=== PATIENT | male | born 1955 | race Caucasian/White ===

== ENCOUNTER → 2018-08-16 | Outpatient (REF) | payer MEDICARE ==
[~2018-08-16] MED LIST: ALBUTEROL S2.5 MG/.5 IN; ALLOPURINOL300 MG PO; AMLODIPINE BESY10 MG PO; AMLODIPINE5 MG PO; BACTRIM DS1 TAB PO; COUMADIN3 MG OR; COUMADIN7.5 MG OR; COUMADIN7.5 MG PO; DOXYCYCL HYC100 MG PO; DOXYCYCLINE100 MG PO; ELIQUIS5 MG PO; FIORICET PO; FLUTICASONE50 MCG; FOLIC ACID1 MG PO; GLIPIZIDE5 MG PO; HYDRALAZINE25 MG PO; LORTAB 10-325 M1 TAB PO; LORTAB5 PO; PENICILLIN VK250 MG PO; WARFARIN7.5 MG PO; [UNRECOGNIZED DRUG - REMARK]
== END | disposition home or self-care (01) ==
LOC: DI 12:59
PROVIDERS: ATTEND Internal Medicine Cardiovascular Disease
DX: J44.9 Chronic obstructive pulmonary disease, unspecified (principal)

== ENCOUNTER 2019-06-27 | Emergency (ER) | payer OTHER, MEDICARE ==
[2019-06-27 15:20] LABS: GFR > 60 ML/MIN (>=60 (CALC)); GFR FOR AFR.AMER. > 60 ML/MIN (>=60 (CALC))
[2019-06-27 15:27] LABS: HEMATOCRIT 46.6 % (39.0-50.0); HEMOGLOBIN 15.1 g/dl (14.0-18.0); IMMATURE GRANULOCYTES 0.4 % (0.0-5.0); MEAN CELL VOLUME 87.6 fL CALC (80.0-100.0); MEAN CORPUSCULAR HGB 28.4 pG CALC (26.0-32.0); MEAN CORPUSCULAR HGB CONC 32.4 g/L CALC (32.0-36.0); NEUT# 5.12 thou/uL (1.82-7.42); RED BLOOD COUNT 5.32 mill/uL (4.70-6.10); RED CELL DISTRI WIDTH 14.1 % (11.5-15.5)
[2019-06-27 15:46] LABS: ALKALINE PHOSPHATASE 50 u/l (38-126); ANION GAP 11 (6-22 (CALC)); BILIRUBIN, TOTAL 0.6 mg/dL (0.0-1.4); BUN 12 mg/dL (8-23); BUN/CREATININE RATIO 16 (12-20 (CALC)); CARBON DIOXIDE 26 mmol/l (22-30); CHLORIDE 105 mmol/l (95-108); CREATININE 0.8 mg/dL (0.7-1.3); GFR > 60 ML/MIN (>=60 (CALC)); GFR FOR AFR.AMER. > 60 ML/MIN (>=60 (CALC)); POTASSIUM 4.2 mmol/l (3.5-5.1); SGOT/AST 26 u/l (19-48); SODIUM 137 mmol/l (137-146); TOTAL PROTEIN 7.3 g/dL (6.3-8.2)
[2019-06-27 15:52] LABS: INTERNATIONAL NORMALIZED RATIO 3.2 RATIO (0.7-1.3); PROTHROMBIN TIME 31.7 SECONDS (9.0-12.5)
[2019-06-27 16:09] LABS: URINE BILIRUBIN - DIPSTICK NEGATIVE (NEGATIVE); URINE BLOOD DIPSTICK NEGATIVE (NEGATIVE); URINE COLOR YELLOW; URINE GLUCOSE - DIPSTICK NEGATIVE (NEGATIVE); URINE KETONE NEGATIVE (NEGATIVE); URINE LEUK ESTERASE NEGATIVE (NEGATIVE); URINE NITRITE - DIPSTICK NEGATIVE (Negative); URINE PROTEIN - DIPSTICK NEGATIVE (NEG-TRACE); URINE SPECIFIC GRAVITY <=1.005
[2019-06-27 16:24] LABS: LIPASE 116 u/l (23-300)
== END 2019-06-27 17:48 | disposition home or self-care (01) | DRG 552 ==
PROVIDERS: Family Medicine
DX: M54.2 Cervicalgia (principal); S80.211A Abrasion, right knee, initial encounter; S50.811A Abrasion of right forearm, initial encounter; F17.210 Nicotine dependence, cigarettes, uncomplicated; V23.4XXA Motorcycle driver injured in collision with car, pick-up truck or van in traffic accident, initial encounter; Z86.718 Personal history of other venous thrombosis and embolism; Z79.01 Long term (current) use of anticoagulants; Z86.711 Personal history of pulmonary embolism
CPT/HCPCS: Q9967

== ENCOUNTER 2019-07-02 | Emergency (ER) | payer OTHER, MEDICARE ==
[2019-07-02 14:54] LABS: HEMATOCRIT 46.4 % (39.0-50.0); IMMATURE GRANULOCYTES 0.3 % (0.0-5.0); MEAN CELL VOLUME 89.7 fL CALC (80.0-100.0); MEAN CORPUSCULAR HGB CONC 32.3 g/L CALC (32.0-36.0); NEUT# 4.89 thou/uL (1.82-7.42); RED BLOOD COUNT 5.17 mill/uL (4.70-6.10); RED CELL DISTRI WIDTH 14.2 % (11.5-15.5)
[2019-07-02 15:10] LABS: ANION GAP 12 (6-22 (CALC)); BUN 14 mg/dL (8-23); BUN/CREATININE RATIO 17 (12-20 (CALC)); CARBON DIOXIDE 29 mmol/l (22-30); CHLORIDE 101 mmol/l (95-108); CREATININE 0.9 mg/dL (0.7-1.3); GFR > 60 ML/MIN (>=60 (CALC)); GFR FOR AFR.AMER. > 60 ML/MIN (>=60 (CALC)); POTASSIUM 4.6 mmol/l (3.5-5.1); SODIUM 137 mmol/l (137-146)
[2019-07-02] MEDS ORDERED: CYCLOBENZAPR5 MG PO ×2 (16:50)
== END 2019-07-02 17:03 | disposition home or self-care (01) | DRG 552 ==
PROVIDERS: Family Medicine
DX: S16.1XXA Strain of muscle, fascia and tendon at neck level, initial encounter (principal); S40.011A Contusion of right shoulder, initial encounter; S40.012A Contusion of left shoulder, initial encounter; S86.911A Strain of unspecified muscle(s) and tendon(s) at lower leg level, right leg, initial encounter; I10 Essential (primary) hypertension; F17.290 Nicotine dependence, other tobacco product, uncomplicated; V23.4XXA Motorcycle driver injured in collision with car, pick-up truck or van in traffic accident, initial encounter; Z86.711 Personal history of pulmonary embolism; Z86.718 Personal history of other venous thrombosis and embolism

== ENCOUNTER 2020-01-01 09:56 | Emergency (ER) | payer MEDICARE ==
[~2020-01-01] VITALS: Ht 198.1 cm; Wt 136.0 kg
[~2020-01-01 09:56] MED LIST changes: +CYCLOBENZAPR5 MG PO
[2020-01-01] MEDS ORDERED: NAPROXEN500 MG PO (10:43)
[2020-01-01] MEDS ORDERED: CLEOCIN300 MG PO (10:43)
[2020-01-01] MEDS ORDERED: PROAIR HFA108 MCG/AC IN (10:58)
[2020-01-01 11:00] VITALS: BP 146/84
== END 2020-01-01 11:00 | disposition home or self-care (01) ==
LOC: ED 09:56
DX: K04.7 Periapical abscess without sinus (principal); S02.5XXA Fracture of tooth (traumatic), initial encounter for closed fracture; I10 Essential (primary) hypertension; F17.210 Nicotine dependence, cigarettes, uncomplicated; X58.XXXA Exposure to other specified factors, initial encounter

== ENCOUNTER 2021-01-09 09:26 | Emergency (ER) | payer MEDICARE, MEDICAID ==
[~2021-01-09] VITALS: Ht 198.1 cm; Wt 140.0 kg
[~2021-01-09 09:26] MED LIST changes: +CLEOCIN300 MG PO; +NAPROXEN500 MG PO; +PROAIR HFA108 MCG/AC IN
[2021-01-09 10:04] VITALS: BP 149/72
[2021-01-09] MEDS ORDERED: WARFARIN7.5 MG PO (10:05)
[2021-01-09 10:32] LABS: HEMATOCRIT 50.2 % (39.0-50.0); HEMOGLOBIN 16.1 g/dl (14.0-18.0); IMMATURE GRANULOCYTES 0.1 % (0.0-5.0); MEAN CELL VOLUME 91.3 fL CALC (80.0-100.0); MEAN CORPUSCULAR HGB 29.3 pG CALC (26.0-32.0); MEAN CORPUSCULAR HGB CONC 32.1 g/dL CAL (32.0-36.0); NEUT# 4.73 thou/uL (1.82-7.42); RED BLOOD COUNT 5.5 mill/uL (4.70-6.10); RED CELL DISTRI WIDTH 13.8 % (11.5-15.5)
[2021-01-09 10:51] LABS: ALKALINE PHOSPHATASE 53 u/l (38-126); ANION GAP 13 (6-22 (CALC)); BILIRUBIN, TOTAL 0.6 mg/dL (0.0-1.4); BUN 10 mg/dL (8-23); BUN/CREATININE RATIO 12 (12-20 (CALC)); CARBON DIOXIDE 27 mmol/l (22-30); CHLORIDE 101 mmol/l (95-108); CREATININE 0.8 mg/dL (0.7-1.3); GFR > 60 ML/MIN (>=60 (CALC)); GFR FOR AFR.AMER. > 60 ML/MIN (>=60 (CALC)); POTASSIUM 4.2 mmol/l (3.5-5.1); SGOT/AST 21 u/l (19-48); SODIUM 137 mmol/l (137-146); TOTAL PROTEIN 7.6 g/dL (6.3-8.2)
[2021-01-09 10:56] LABS: ACT PARTIAL THROMBO TIME 44.8 SECONDS (20.0-32.5)
[2021-01-09 11:03] LABS: INTERNATIONAL NORMALIZED RATIO 3.8 RATIO (0.7-1.3); PROTHROMBIN TIME 36.4 SECONDS (9.0-12.5)
[2021-01-09] MEDS ORDERED: ZITHROMAX Z-PA250 MG PO (11:33)
[2021-01-09] MEDS ORDERED: BACTRIM DS1 TAB PO (11:33)
== END 2021-01-09 11:42 | disposition home or self-care (01) ==
LOC: ED 09:26
DX: L72.3 Sebaceous cyst (principal); R79.1 Abnormal coagulation profile; T45.515A Adverse effect of anticoagulants, initial encounter; I10 Essential (primary) hypertension; F17.210 Nicotine dependence, cigarettes, uncomplicated; Z86.711 Personal history of pulmonary embolism; Z86.718 Personal history of other venous thrombosis and embolism; Z79.01 Long term (current) use of anticoagulants

== ENCOUNTER 2021-01-12 08:00 | Emergency (ER) | payer MEDICARE, MEDICAID ==
[~2021-01-12 08:00] MED LIST changes: +ZITHROMAX Z-PA250 MG PO
[2021-01-12 09:37] LABS: INTERNATIONAL NORMALIZED RATIO 1.7 RATIO (0.7-1.3)
[2021-01-12 11:10] VITALS: BP 129/60
== END 2021-01-12 11:19 | disposition home or self-care (01) ==
LOC: ED 08:00
PROVIDERS: Emergency Medicine
PROC: 0H96XZZ Drainage of Back Skin, External Approach (ICD-10-PCS; principal; 2021-01-12)
DX: L72.3 Sebaceous cyst (principal); I10 Essential (primary) hypertension; Z79.01 Long term (current) use of anticoagulants; Z86.711 Personal history of pulmonary embolism; Z86.718 Personal history of other venous thrombosis and embolism

== ENCOUNTER 2021-01-13 08:34 | Emergency (ER) | payer MEDICARE, MEDICAID ==
[2021-01-13 12:34] VITALS: BP 118/59
== END 2021-01-13 13:11 | disposition home or self-care (01) ==
LOC: ED 08:34
DX: L72.3 Sebaceous cyst (principal); R11.10 Vomiting, unspecified; T36.8X5A Adverse effect of other systemic antibiotics, initial encounter; J44.9 Chronic obstructive pulmonary disease, unspecified; I10 Essential (primary) hypertension; Z86.711 Personal history of pulmonary embolism; Z86.718 Personal history of other venous thrombosis and embolism

== ENCOUNTER 2021-10-21 15:03 | Emergency (ER) | payer MEDICARE, MEDICAID ==
[~2021-10-21] VITALS: Ht 198.1 cm; Wt 140.0 kg
[2021-10-21 15:58] VITALS: BP 149/75
[2021-10-21 16:01] VITALS: BP 144/71
[2021-10-21 16:28] LABS: HEMATOCRIT 49.1 % (39.0-50.0); HEMOGLOBIN 15.8 g/dl (14.0-18.0); IMMATURE GRANULOCYTES 0.1 % (0.0-5.0); MEAN CELL VOLUME 90.3 fL CALC (80.0-100.0); MEAN CORPUSCULAR HGB CONC 32.2 g/dL CAL (32.0-36.0); NEUT# 5.33 thou/uL (1.82-7.42); RED BLOOD COUNT 5.44 mill/uL (4.70-6.10)
[2021-10-21 16:34] LABS: ALKALINE PHOSPHATASE 58 u/l (38-126); ANION GAP 12 (6-22 (CALC)); BILIRUBIN, TOTAL 0.6 mg/dL (0.0-1.4); BUN 10 mg/dL (8-23); BUN/CREATININE RATIO 10 (12-20 (CALC)); CARBON DIOXIDE 30 mmol/l (22-30); CHLORIDE 103 mmol/l (95-108); GFR > 60 ML/MIN (>=60 (CALC)); GFR FOR AFR.AMER. > 60 ML/MIN (>=60 (CALC)); POTASSIUM 3.8 mmol/l (3.5-5.1); SGOT/AST 22 u/l (19-48); SODIUM 141 mmol/l (137-146); TOTAL PROTEIN 7.2 g/dL (6.3-8.2)
[2021-10-21 17:01] VITALS: BP 138/81
[2021-10-21 18:01] VITALS: BP 136/76
[2021-10-21] MEDS ORDERED: TRAMADOL HCL50 MG PO (18:48)
== END 2021-10-21 18:55 | disposition home or self-care (01) ==
LOC: ED 15:03
PROVIDERS: Nurse Practitioner
DX: L03.031 Cellulitis of right toe (principal); L97.519 Non-pressure chronic ulcer of other part of right foot with unspecified severity; I10 Essential (primary) hypertension; Z86.718 Personal history of other venous thrombosis and embolism; Z86.711 Personal history of pulmonary embolism; L97.512 Non-pressure chronic ulcer of other part of right foot with fat layer exposed; E66.01 Morbid (severe) obesity due to excess calories; I87.2 Venous insufficiency (chronic) (peripheral); J44.9 Chronic obstructive pulmonary disease, unspecified; L72.9 Follicular cyst of the skin and subcutaneous tissue, unspecified; S91.104A Unspecified open wound of right lesser toe(s) without damage to nail, initial encounter

== ENCOUNTER 2022-01-05 09:58 | Emergency (ER) | payer MEDICARE, MEDICAID ==
[~2022-01-05] VITALS: Ht 198.1 cm; Wt 159.0 kg
[~2022-01-05 09:58] MED LIST changes: +TRAMADOL HCL50 MG PO
[2022-01-05 10:08] VITALS: BP 133/61
[2022-01-05 10:12] VITALS: BP 133/61
[2022-01-05] MEDS ORDERED: CEPHALEXIN500 M1 PO (10:23)
[2022-01-05] MEDS ORDERED: MUPIROCIN21 TOP (10:30)
[2022-01-05 10:31] VITALS: BP 133/74
== END 2022-01-05 11:06 | disposition home or self-care (01) ==
LOC: ED 09:58
DX: S81.801A Unspecified open wound, right lower leg, initial encounter (principal); L03.115 Cellulitis of right lower limb; E66.9 Obesity, unspecified; F17.200 Nicotine dependence, unspecified, uncomplicated; B96.89 Other specified bacterial agents as the cause of diseases classified elsewhere; X58.XXXA Exposure to other specified factors, initial encounter; Z86.711 Personal history of pulmonary embolism; Z86.718 Personal history of other venous thrombosis and embolism

== ENCOUNTER 2022-01-21 11:57 | Emergency (ER) | payer OTHER, MEDICARE, MEDICAID ==
[2022-01-21] VITALS (7 sets, daily range): BP systolic 133–160; BP diastolic 69–86
[~2022-01-21] VITALS: Ht 198.1 cm; Wt 145.4 kg
[~2022-01-21 11:57] MED LIST changes: +CEPHALEXIN500 M1 PO; +MUPIROCIN21 TOP
[2022-01-21] MEDS ORDERED: METHOCARBAMOL500 MG PO (13:31)
[2022-01-21] MEDS ORDERED: NAPROXEN500 MG PO (13:31)
== END 2022-01-21 13:50 | disposition home or self-care (01) | DRG 552 ==
LOC: ED 11:57
DX: S16.1XXA Strain of muscle, fascia and tendon at neck level, initial encounter (principal); I10 Essential (primary) hypertension; F17.290 Nicotine dependence, other tobacco product, uncomplicated; V53.5XXA Driver of pick-up truck or van injured in collision with car, pick-up truck or van in traffic accident, initial encounter; Y99.0 Civilian activity done for income or pay; Z86.711 Personal history of pulmonary embolism; Z86.718 Personal history of other venous thrombosis and embolism; Z79.01 Long term (current) use of anticoagulants

== ENCOUNTER 2022-03-08 12:23 | Emergency (ER) | payer MEDICARE, MEDICAID ==
[~2022-03-08] VITALS: Ht 198.1 cm; Wt 144.0 kg
[~2022-03-08 12:23] MED LIST changes: +METHOCARBAMOL500 MG PO
[2022-03-08 14:15] LABS: HEMATOCRIT 45.3 % (39.0-50.0); HEMOGLOBIN 14.7 g/dl (14.0-18.0); IMMATURE GRANULOCYTES 0.1 % (0.0-5.0); MEAN CELL VOLUME 90.1 fL CALC (80.0-100.0); MEAN CORPUSCULAR HGB 29.2 pG CALC (26.0-32.0); MEAN CORPUSCULAR HGB CONC 32.5 g/dL CAL (32.0-36.0); NEUT# 4.43 thou/uL (1.82-7.42); RED BLOOD COUNT 5.03 mill/uL (4.70-6.10); RED CELL DISTRI WIDTH 14.3 % (11.5-15.5)
[2022-03-08 14:40] LABS: ALBUMIN 3.7 g/dL (3.2-5.0); ALKALINE PHOSPHATASE 54 u/l (38-126); ANION GAP 9 (6-22 (CALC)); BILIRUBIN, TOTAL 0.6 mg/dL (0.0-1.4); BUN 10 mg/dL (8-23); BUN/CREATININE RATIO 13 (12-20 (CALC)); CARBON DIOXIDE 29 mmol/l (22-30); CHLORIDE 104 mmol/l (95-108); CREATININE 0.8 mg/dL (0.7-1.3); GFR FOR AFR.AMER. > 60 ML/MIN (>=60 (CALC)); GFR OTHER RACES > 60 ML/MIN (>=60 (CALC)); SGOT/AST 27 u/l (19-48); SODIUM 138 mmol/l (137-146); TOTAL PROTEIN 6.4 g/dL (6.3-8.2)
[2022-03-08 15:25] LABS: POTASSIUM 4.1 mmol/l (3.5-5.1)
[2022-03-08] MEDS ORDERED: CEPHALEXIN500 M1 PO (15:55)
[2022-03-08 16:00] VITALS: BP 149/88
== END 2022-03-08 16:06 | disposition home or self-care (01) ==
LOC: ED 12:23
PROVIDERS: Family Medicine
DX: L03.115 Cellulitis of right lower limb (principal); I10 Essential (primary) hypertension; F17.200 Nicotine dependence, unspecified, uncomplicated; Z86.711 Personal history of pulmonary embolism; Z86.718 Personal history of other venous thrombosis and embolism; M79.604 Pain in right leg; M79.89 Other specified soft tissue disorders

== ENCOUNTER 2022-10-28 08:45 | Emergency (ER) | payer MEDICARE, MEDICAID ==
[~2022-10-28] VITALS: Ht 198.1 cm; Wt 136.0 kg
[2022-10-28] MEDS ORDERED: DECADRON4 MG PO (10:03)
[2022-10-28 10:07] VITALS: BP 138/70
[2022-10-28] MEDS ORDERED: ALL DAY10 MG PO (10:11)
== END 2022-10-28 10:12 | disposition home or self-care (01) ==
LOC: ED 08:45
DX: T78.40XA Allergy, unspecified, initial encounter (principal); E11.9 Type 2 diabetes mellitus without complications; J44.9 Chronic obstructive pulmonary disease, unspecified; I10 Essential (primary) hypertension; X58.XXXA Exposure to other specified factors, initial encounter; Z86.711 Personal history of pulmonary embolism; Z86.718 Personal history of other venous thrombosis and embolism

== ENCOUNTER 2023-04-18 10:08 | Emergency (ER) | payer MEDICARE, MEDICAID ==
[~2023-04-18] VITALS: Ht 198.1 cm; Wt 145.7 kg
[~2023-04-18 10:08] MED LIST changes: +ALL DAY10 MG PO; +DECADRON4 MG PO
[2023-04-18 10:25] VITALS: BP 141/76
[2023-04-18 10:31] VITALS: BP 119/67
[2023-04-18 10:49] VITALS: BP 118/64
[2023-04-18 11:00] VITALS: BP 122/61
[2023-04-18 11:04] LABS: BASO% 0.7 % (0-3); EOS% 2.8 % (0-8); HEMATOCRIT 49.8 % (39.0-50.0); HEMOGLOBIN 16.5 g/dl (14.0-18.0); IMMATURE GRANULOCYTES 0.2 % (0.0-5.0); LYMPH% 22.9 % (15-41); MEAN CELL VOLUME 88.9 fL CALC (80.0-100.0); MEAN CORPUSCULAR HGB 29.5 pG CALC (26.0-32.0); MEAN CORPUSCULAR HGB CONC 33.1 g/dL CAL (32.0-36.0); MONO% 11.9 % (2-13); NEUT# 3.57 thou/uL (1.82-7.42); NEUT% 61.5 % (42-76); RED BLOOD COUNT 5.6 mill/uL (4.70-6.10); RED CELL DISTRI WIDTH 14.4 % (11.5-15.5)
[2023-04-18 11:25] LABS: ALBUMIN 4.2 g/dL (3.2-5.0); ALKALINE PHOSPHATASE 62 u/l (38-126); ANION GAP 17 (6-22 (CALC)); BUN 11 mg/dL (8-23); BUN/CREATININE RATIO 12 (12-20 (CALC)); CARBON DIOXIDE 24 mmol/l (22-30); CHLORIDE 100 mmol/l (95-108); GFR FOR AFR.AMER. > 60 ML/MIN (>=60 (CALC)); GFR OTHER RACES > 60 ML/MIN (>=60 (CALC)); POTASSIUM 4.2 mmol/l (3.5-5.1); SGOT/AST 46 u/l (19-48); SODIUM 137 mmol/l (137-146); TOTAL PROTEIN 7.8 g/dL (6.3-8.2)
[2023-04-18 11:26] LABS: BILIRUBIN, TOTAL 1.2 mg/dL (0.2-1.3); PROTHROMBIN TIME 18.4 SECONDS (9.0-12.5)
[2023-04-18 12:31] VITALS: BP 144/66
[2023-04-18] MEDS ORDERED: NEBULIZER PO (13:12)
[2023-04-18] MEDS ORDERED: VENTOLIN HFA108 MCG PO (13:12)
[2023-04-18] MEDS ORDERED: IPRATROPIU0.5 MG/3 M IN (13:12)
[2023-04-18] MEDS ORDERED: ZPAK PO (13:12)
[2023-04-18 13:17] VITALS: BP 144/66
== END 2023-04-18 13:33 | disposition home or self-care (01) ==
LOC: ED 10:08
PROVIDERS: Family Medicine
DX: J06.9 Acute upper respiratory infection, unspecified (principal); I10 Essential (primary) hypertension; Z86.718 Personal history of other venous thrombosis and embolism; Z86.711 Personal history of pulmonary embolism; Z86.73 Personal history of transient ischemic attack (TIA), and cerebral infarction without residual deficits; J44.9 Chronic obstructive pulmonary disease, unspecified; Z20.822 Contact with and (suspected) exposure to COVID-19
CPT/HCPCS: Q9967

== ENCOUNTER 2024-01-31 18:14 | Emergency (ER) | payer MEDICARE, MEDICAID ==
[~2024-01-31] VITALS: Ht 198.1 cm; Wt 145.0 kg
[~2024-01-31 18:14] MED LIST changes: +IPRATROPIU0.5 MG/3 M IN; +NABUMETONE750 MG PO; +NEBULIZER PO; +VENTOLIN HFA108 MCG PO; +ZPAK PO
[2024-01-31 20:19] LABS: BASO% 0.5 % (0-3); HEMATOCRIT 44.3 % (39.0-50.0); HEMOGLOBIN 14.4 g/dl (14.0-18.0); IMMATURE GRANULOCYTES 0.3 % (0.0-5.0); LYMPH% 21.7 % (15-41); MEAN CELL VOLUME 88.6 fL CALC (80.0-100.0); MEAN CORPUSCULAR HGB 28.8 pG CALC (26.0-32.0); MEAN CORPUSCULAR HGB CONC 32.5 g/dL CAL (32.0-36.0); MONO% 7.7 % (2-13); NEUT# 6.48 thou/uL (1.82-7.42); NEUT% 63.8 % (42-76); RED CELL DISTRI WIDTH 14.4 % (11.5-15.5)
[2024-01-31 20:38] LABS: ALBUMIN 4.1 g/dL (3.2-5.0); BILIRUBIN, TOTAL 1.1 mg/dL (0.2-1.3); C-REACTIVE PROTEIN 4.7 mg/dL (0-0.9); TOTAL PROTEIN 7.7 g/dL (6.3-8.2)
[2024-01-31] MEDS ORDERED: DOXYCYCLINE HYCLATE 100 MG in SODIUM CHLORIDE 0.9% 100 ML IV ONE (20:45)
[2024-01-31] MEDS ORDERED: ACETAMINOPHEN 325 MG/TAB PO PRN (21:00)
[2024-01-31] MEDS ORDERED: MAGNESIUM HYDROXIDE 30 ML UDC PO PRN (21:00)
[2024-01-31] MEDS ORDERED: DiphenhydrAMINE HCL 50 MG/ML SDV IV PRN (21:05)
[2024-01-31] MEDS ORDERED: IPRATROPIUM-Albuterol 0.5MG-2.5MG/3 ML NEB PRN (21:05)
[2024-01-31] MEDS ORDERED: ADVAIR DISK1 IN (21:14)
[2024-01-31] MEDS ORDERED: SUDAFED 24 HOU240 MG PO (21:16)
[2024-01-31] MEDS ORDERED: cefTRIAXone SODIUM 2 GM in SODIUM CHLORIDE 0.9% 100 ML IV SCH (22:00)
[2024-01-31 22:48] VITALS: BP 142/71
[2024-02-01] MEDS ORDERED: DOXYCYCLINE HYCLATE 100 MG in SODIUM CHLORIDE 0.9% 100 ML IV SCH (09:00)
== END 2024-01-31 22:48 | disposition left against medical advice (07) ==
LOC: ED 18:14 → ED-I 20:30 → ED 22:48
PROVIDERS: Nurse Practitioner
DX: L03.115 Cellulitis of right lower limb (principal); I87.2 Venous insufficiency (chronic) (peripheral); L97.311 Non-pressure chronic ulcer of right ankle limited to breakdown of skin; I10 Essential (primary) hypertension; J44.9 Chronic obstructive pulmonary disease, unspecified; F17.200 Nicotine dependence, unspecified, uncomplicated; Z86.711 Personal history of pulmonary embolism; Z86.718 Personal history of other venous thrombosis and embolism; Z53.29 Procedure and treatment not carried out because of patient's decision for other reasons

== ENCOUNTER 2024-02-01 11:32 | Observation (INO) | payer MEDICARE, MEDICAID ==
[2024-02-01] VITALS (7 sets, daily range): BP systolic 120–158; BP diastolic 63–78
[~2024-02-01] VITALS: Ht 198.1 cm; Wt 147.0 kg
[~2024-02-01 11:32] MED LIST changes: +ADVAIR DISK1 IN; +SUDAFED 24 HOU240 MG PO
[2024-02-01] MEDS ORDERED: cefTRIAXone SODIUM 2 GM in SODIUM CHLORIDE 0.9% 100 ML IV ONE (12:35)
[2024-02-01] MEDS ORDERED: SODIUM CHLORIDE 0.9% 100 ML IV ONE (12:45)
[2024-02-01] MEDS ORDERED: methylPREDNISolone SODIUM SUCC 125 MG/2 ML SDV IV ONE (12:50)
[2024-02-01] MEDS ORDERED: MAGNESIUM HYDROXIDE 30 ML UDC PO PRN (13:35)
[2024-02-01] MEDS ORDERED: SODIUM CHLORIDE 0.9% 1,000 ML IV PRN (13:35)
[2024-02-01] MEDS ORDERED: ACETAMINOPHEN 325 MG/TAB PO PRN (13:35)
[2024-02-01 13:38] LABS: BASO% 0.4 % (0-3); HEMOGLOBIN 14.8 g/dl (14.0-18.0); IMMATURE GRANULOCYTES 0.3 % (0.0-5.0); LYMPH% 22.2 % (15-41); MEAN CELL VOLUME 88.1 fL CALC (80.0-100.0); MEAN CORPUSCULAR HGB CONC 32.9 g/dL CAL (32.0-36.0); MONO% 8.8 % (2-13); NEUT# 4.45 thou/uL (1.82-7.42); NEUT% 61.3 % (42-76); RED BLOOD COUNT 5.11 mill/uL (4.70-6.10); RED CELL DISTRI WIDTH 14.3 % (11.5-15.5)
[2024-02-01] MEDS ORDERED: DiphenhydrAMINE HCL 50 MG/ML SDV IV PRN (13:45)
[2024-02-01 13:47] LABS: ALBUMIN 3.8 g/dL (3.2-5.0); BILIRUBIN, TOTAL 1.1 mg/dL (0.2-1.3); CREATININE 0.8 mg/dL (0.7-1.3); POTASSIUM 4.2 mmol/l (3.5-5.1); TOTAL PROTEIN 6.8 g/dL (6.3-8.2)
[2024-02-01] MEDS ORDERED: hydrALAZINE HCL 20 MG/ML VIAL(1 ML) IV PRN (14:00)
[2024-02-01] MEDS ORDERED: IPRATROPIUM-Albuterol 0.5MG-2.5MG/3 ML NEB PRN (14:00)
[2024-02-01 14:04] LABS: PROTHROMBIN TIME 27.4 SECONDS (9.0-12.5)
[2024-02-01] MEDS ORDERED: Meropenem 1 GM in SODIUM CHLORIDE 0.9% 100 ML IV SCH (14:30)
[2024-02-01] MEDS ORDERED: FUROSEMIDE 40 MG/4 ML SDV IV SCH (15:00)
[2024-02-01] MEDS ORDERED: ENOXAPARIN SODIUM 40 MG/0.4 ML SYR SC SCH (21:00)
[2024-02-01] MEDS ORDERED: FLUTICASONE/SALMETEROL 250 MCG/50 MCG PER DOSE INH IN SCH (21:00)
[2024-02-02] VITALS: BP 147/74
[2024-02-02 03:52] VITALS: BP 125/67
[2024-02-02 04:00] VITALS: BP 125/67
[2024-02-02 06:06] LABS: BASO% 0.2 % (0-3); HEMATOCRIT 43.2 % (39.0-50.0); HEMOGLOBIN 14.5 g/dl (14.0-18.0); IMMATURE GRANULOCYTES 0.5 % (0.0-5.0); LYMPH% 15.5 % (15-41); MEAN CELL VOLUME 88.7 fL CALC (80.0-100.0); MEAN CORPUSCULAR HGB 29.8 pG CALC (26.0-32.0); MEAN CORPUSCULAR HGB CONC 33.6 g/dL CAL (32.0-36.0); MONO% 2.2 % (2-13); NEUT# 5.15 thou/uL (1.82-7.42); NEUT% 81.6 % (42-76); RED BLOOD COUNT 4.87 mill/uL (4.70-6.10); RED CELL DISTRI WIDTH 14.1 % (11.5-15.5)
[2024-02-02 06:21] LABS: ALBUMIN 3.3 g/dL (3.2-5.0); CHOLESTEROL HDL RATIO 4.9 (<4.4 (CALC)); CREATININE 0.7 mg/dL (0.7-1.3); MAGNESIUM 2.1 mg/dL (1.6-2.3); POTASSIUM 4.3 mmol/l (3.5-5.1); TOTAL PROTEIN 6.2 g/dL (6.3-8.2)
[2024-02-02 06:25] LABS: BILIRUBIN, TOTAL 0.6 mg/dL (0.2-1.3)
[2024-02-02 06:28] VITALS: BP 126/56
[2024-02-02 06:56] VITALS: BP 126/56
[2024-02-02] MEDS ORDERED: FUROSEMIDE 40 MG/4 ML SDV IV SCH (09:00)
[2024-02-02 10:20] LABS: INTERNATIONAL NORMALIZED RATIO 4.2 RATIO (0.7-1.3); PROTHROMBIN TIME 37.4 SECONDS (9.0-12.5)
== END 2024-02-02 11:02 | disposition left against medical advice (07) ==
LOC: ED 11:32 → ED-I 12:31 → ED 13:07 → MS2 13:08
PROVIDERS: Family Medicine; ADMIT Student in an Organized Health Care Education/Training Program; ATTEND Student in an Organized Health Care Education/Training Program
DX: L03.115 Cellulitis of right lower limb (principal); L50.9 Urticaria, unspecified; L97.919 Non-pressure chronic ulcer of unspecified part of right lower leg with unspecified severity; I10 Essential (primary) hypertension; J44.9 Chronic obstructive pulmonary disease, unspecified; I73.9 Peripheral vascular disease, unspecified; E66.9 Obesity, unspecified; F17.200 Nicotine dependence, unspecified, uncomplicated; Z86.718 Personal history of other venous thrombosis and embolism; Z86.711 Personal history of pulmonary embolism; Z79.01 Long term (current) use of anticoagulants; Z95.828 Presence of other vascular implants and grafts; Z88.1 Allergy status to other antibiotic agents; Z88.0 Allergy status to penicillin
CPT/HCPCS: J0878; Q9967

== ENCOUNTER 2024-02-06 10:56 | Emergency (ER) | payer MEDICARE, MEDICAID ==
[~2024-02-06] VITALS: Ht 198.1 cm; Wt 145.0 kg
[2024-02-06] VITALS (11 sets, daily range): BP systolic 135–163; BP diastolic 65–84
[2024-02-06] MEDS ORDERED: DiphenhydrAMINE HCL 50 MG/ML SDV IV ONE (11:15)
[2024-02-06] MEDS ORDERED: FAMOTIDINE 10MG/ML 2ML SDV IV ONE (11:15)
[2024-02-06] MEDS ORDERED: ASPIRIN 81 MG/TAB PO ONE (11:15)
[2024-02-06] MEDS ORDERED: methylPREDNISolone SODIUM SUCC 125 MG/2 ML SDV IV ONE (11:15)
[2024-02-06] MEDS ORDERED: NITROGLYCERIN 0.4 MG/TAB SL ONE (11:25)
[2024-02-06 11:56] LABS: BASO% 0.8 % (0-3); EOS% 7.6 % (0-8); HEMATOCRIT 44.9 % (39.0-50.0); HEMOGLOBIN 14.7 g/dl (14.0-18.0); IMMATURE GRANULOCYTES 0.4 % (0.0-5.0); LYMPH% 29.1 % (15-41); MEAN CELL VOLUME 88.6 fL CALC (80.0-100.0); MEAN CORPUSCULAR HGB CONC 32.7 g/dL CAL (32.0-36.0); MONO% 9.9 % (2-13); NEUT# 3.84 thou/uL (1.82-7.42); NEUT% 52.2 % (42-76); RED BLOOD COUNT 5.07 mill/uL (4.70-6.10); RED CELL DISTRI WIDTH 14.2 % (11.5-15.5)
[2024-02-06 12:08] LABS: ALBUMIN 3.9 g/dL (3.2-5.0); ALKALINE PHOSPHATASE 53 u/l (38-126); BILIRUBIN, TOTAL 0.7 mg/dL (0.2-1.3); BUN 12 mg/dL (8-23); BUN/CREATININE RATIO 13 (12-20 (CALC)); CHLORIDE 105 mmol/l (95-108); ESTIMATED GFR 83 ML/MIN (>=90 (CALC)); POTASSIUM 3.9 mmol/l (3.5-5.1); SODIUM 138 mmol/l (137-146); TOTAL PROTEIN 7.4 g/dL (6.3-8.2)
[2024-02-06 12:12] LABS: ANION GAP 5 (6-22 (CALC)); CARBON DIOXIDE 32 mmol/l (22-30); SGOT/AST 95 u/l (19-48)
== END 2024-02-06 14:22 | disposition left against medical advice (07) ==
LOC: ED 10:56
PROVIDERS: Family Medicine
DX: R07.9 Chest pain, unspecified (principal); I10 Essential (primary) hypertension; J44.9 Chronic obstructive pulmonary disease, unspecified; Z86.718 Personal history of other venous thrombosis and embolism; Z86.711 Personal history of pulmonary embolism; Z53.29 Procedure and treatment not carried out because of patient's decision for other reasons
CPT/HCPCS: J0878

== ENCOUNTER 2024-03-13 08:58 | Emergency (ER) | payer MEDICARE, MEDICAID ==
[2024-03-13] VITALS (7 sets, daily range): BP systolic 147–181; BP diastolic 74–84
[~2024-03-13] VITALS: Ht 198.1 cm; Wt 148.2 kg
[2024-03-13 09:28] LABS: BASO% 0.6 % (0-3); EOS% 1.9 % (0-8); HEMATOCRIT 47.1 % (39.0-50.0); HEMOGLOBIN 14.9 g/dl (14.0-18.0); IMMATURE GRANULOCYTES 0.6 % (0.0-5.0); LYMPH% 22.1 % (15-41); MEAN CELL VOLUME 91.8 fL CALC (80.0-100.0); MEAN CORPUSCULAR HGB CONC 31.6 g/dL CAL (32.0-36.0); MONO% 6.2 % (2-13); NEUT# 6.63 thou/uL (1.82-7.42); NEUT% 68.6 % (42-76); RED BLOOD COUNT 5.13 mill/uL (4.70-6.10); RED CELL DISTRI WIDTH 14.9 % (11.5-15.5)
[2024-03-13 09:50] LABS: ALBUMIN 3.6 g/dL (3.2-5.0); BILIRUBIN, TOTAL 0.4 mg/dL (0.2-1.3); CREATININE 0.8 mg/dL (0.7-1.3); POTASSIUM 4.4 mmol/l (3.5-5.1); TOTAL PROTEIN 6.8 g/dL (6.3-8.2)
[2024-03-13 10:15] LABS: INTERNATIONAL NORMALIZED RATIO 2.6 RATIO (0.7-1.3); PROTHROMBIN TIME 23.8 SECONDS (9.0-12.5)
== END 2024-03-13 10:40 | disposition home or self-care (01) ==
LOC: ED 08:58
PROVIDERS: Family Medicine
DX: Z76.0 Encounter for issue of repeat prescription (principal); M79.89 Other specified soft tissue disorders; I10 Essential (primary) hypertension; J44.9 Chronic obstructive pulmonary disease, unspecified; Z86.718 Personal history of other venous thrombosis and embolism; Z86.711 Personal history of pulmonary embolism; Z79.01 Long term (current) use of anticoagulants; T50.1X6A Underdosing of loop [high-ceiling] diuretics, initial encounter; Z91.128 Patient's intentional underdosing of medication regimen for other reason

== ENCOUNTER 2024-03-22 14:09 | Emergency (ER) | payer MEDICARE, MEDICAID ==
[~2024-03-22] VITALS: Ht 198.1 cm; Wt 148.0 kg
[2024-03-22 14:15] VITALS: BP 140/66
[2024-03-22] MEDS ORDERED: DiphenhydrAMINE HCL 50 MG/ML SDV IV STA (14:21)
[2024-03-22] MEDS ORDERED: methylPREDNISolone SODIUM SUCC 125 MG/2 ML SDV IV STA (14:21)
[2024-03-22] MEDS ORDERED: PREDNISONE50 MG PO ×2 (14:25→15:46)
[2024-03-22 14:31] VITALS: BP 141/67
[2024-03-22 14:46] VITALS: BP 136/72
[2024-03-22 15:02] VITALS: BP 147/71
[2024-03-22 15:31] VITALS: BP 139/71
[2024-03-22] MEDS ORDERED: traMADol HCL 50 MG/TAB PO ONE (15:35)
[2024-03-22] MEDS ORDERED: DICLOFENAC SODIUM 75 MG/TAB PO ONE (15:35)
[2024-03-22] MEDS ORDERED: ACETAMINOPHEN 500 MG TAB PO ONE (15:35)
== END 2024-03-22 15:53 | disposition home or self-care (01) ==
LOC: ED 14:09
DX: T63.461A Toxic effect of venom of wasps, accidental (unintentional), initial encounter (principal); R22.1 Localized swelling, mass and lump, neck; I10 Essential (primary) hypertension; J44.9 Chronic obstructive pulmonary disease, unspecified; Z86.711 Personal history of pulmonary embolism; Z86.718 Personal history of other venous thrombosis and embolism

== ENCOUNTER 2024-07-09 09:12 | Emergency (ER) | payer MEDICARE ==
[~2024-07-09] VITALS: Ht 198.1 cm; Wt 145.0 kg
[~2024-07-09 09:12] MED LIST changes: +PREDNISONE50 MG PO
[2024-07-09 09:26] VITALS: BP 153/83
[2024-07-09 10:15] VITALS: BP 147/77
[2024-07-09 10:31] VITALS: BP 153/82
[2024-07-09 10:35] LABS: BASO% 0.8 % (0-3); EOS% 3.6 % (0-8); HEMATOCRIT 45.5 % (39.0-50.0); HEMOGLOBIN 14.9 g/dl (14.0-18.0); IMMATURE GRANULOCYTES 0.2 % (0.0-5.0); LYMPH% 25.4 % (15-41); MEAN CELL VOLUME 90.1 fL CALC (80.0-100.0); MEAN CORPUSCULAR HGB 29.5 pG CALC (26.0-32.0); MEAN CORPUSCULAR HGB CONC 32.7 g/dL CAL (32.0-36.0); NEUT# 3.75 thou/uL (1.82-7.42); RED BLOOD COUNT 5.05 mill/uL (4.70-6.10); RED CELL DISTRI WIDTH 14.1 % (11.5-15.5)
[2024-07-09 10:39] LABS: ALBUMIN 3.5 g/dL (3.2-5.0); CREATININE 0.8 mg/dL (0.7-1.3); POTASSIUM 4.3 mmol/l (3.5-5.1); TOTAL PROTEIN 6.8 g/dL (6.3-8.2)
[2024-07-09 10:47] LABS: BILIRUBIN, TOTAL 0.8 mg/dL (0.2-1.3)
[2024-07-09 12:41] VITALS: BP 153/82
== END 2024-07-09 12:47 | disposition home or self-care (01) ==
LOC: ED 09:12
PROVIDERS: Family Medicine
DX: K59.00 Constipation, unspecified (principal); I10 Essential (primary) hypertension; J44.9 Chronic obstructive pulmonary disease, unspecified; Z86.711 Personal history of pulmonary embolism; Z86.718 Personal history of other venous thrombosis and embolism
CPT/HCPCS: Q9967